=== PATIENT | female | born 1990 | race Caucasian/White ===

== ENCOUNTER 2021-02-18 09:57 | Day surgery (SDC) | payer OTHER ==
[~2021-02-18] VITALS: Ht 165.1 cm; Wt 85.6 kg
[2021-02-18 10:14] VITALS: BP 125/78; PULSE 82; TEMP 97.9
[2021-02-18] MEDS ORDERED: FEMARA PO (10:19)
[2021-02-18] MEDS ORDERED: MICRONOR 5MG5 MG/TAB PO (10:20)
[2021-02-18 13:29] VITALS: TEMP 99.2
[2021-02-18 13:55] VITALS: BP 121/72; PULSE 62
--- NOTE | 2021-02-18 13:55 | NUR ---
Patient returns to room 7 per cart accompanied by Ambika JOSEPH and is awake and alert. Exofin skin glue on incision sites x3 dry and wound edges well approximated. Thalia pad in place, no drainage. IV to INT and fluids all infused. Taking water and denies pain or nausea. Spouse in room. Call light in reach.
[2021-02-18 14:10] VITALS: BP 127/78; PULSE 76
--- NOTE | 2021-02-18 14:10 | NUR ---
Resting and denies pain. Room air sats 96%. Tolerates water and ice cream.
--- NOTE | 2021-02-18 14:25 | NUR ---
Assisted up to the bathroom and is tolerates activity well. Voids and returns to room. INT needle discontinued. Patient dresses self.
--- NOTE | 2021-02-18 14:35 | NUR ---
Given dismissal instructions and voices understanding of these. Tolerated water and ice cream.
--- NOTE | 2021-02-18 14:51 | NUR ---
Dismissal instructions signed and patient dismissed to home driven by spouse and taken to the front door per wheelchair and assisted into vehicle with instructions in hand.
== END 2021-02-18 14:51 | disposition home or self-care (01) ==
LOC: SDCO 09:57
DX: N80.9 Endometriosis, unspecified (principal); N83.202 Unspecified ovarian cyst, left side; N73.6 Female pelvic peritoneal adhesions (postinfective); E66.9 Obesity, unspecified; Z20.822 Contact with and (suspected) exposure to COVID-19; Z79.899 Other long term (current) drug therapy; Z87.891 Personal history of nicotine dependence
CPT/HCPCS: A4314; J1100; J1170; J1885; J2405; J2704; J2710; J3010; J7120